=== PATIENT | female | born 1975 | race Caucasian/White ===

== ENCOUNTER 2023-03-07 13:19 | Emergency (ER) | payer MEDICARE, MEDICAID, SELFPAY ==
--- NOTE | ~2023-03-07 | CT_ITS ---
EXAMINATION: CT ABDOMEN AND PELVIS WITH CONTRAST CLINICAL INFORMATION: Postoperative fluid collection. COMPARISON: None available. TECHNIQUE: Multidetector volumetric images were obtained from the superior aspect of the liver through the pubic symphysis following administration 85 mL of Omnipaque 350 intravenous contrast. Sagittal and coronal reformatted images were obtained on the technologist's workstation. Oral contrast: No This CT examination was performed using dose optimization techniques as appropriate, variously including the following: *Automated exposure control *Adjustment of mA and/or kV according to patient size (this includes techniques or standardized protocols for targeted exams where dose is matched to indication/reason for exam; i.e. extremities or head) *Use of iterative reconstruction technique DLP: 602 mGy-cm FINDINGS: LUNG BASES: There is mild bibasilar linear scar/subsegmental atelectasis. LIVER, GALLBLADDER, AND BILIARY TREE: The liver is normal in size, shape, and attenuation. No focal hepatic lesion or biliary ductal dilatation is present. The gallbladder is unremarkable, with no evidence of radiopaque gallstones, gallbladder wall thickening or obvious pericholecystic inflammatory changes. PANCREAS: Unremarkable. SPLEEN: Unremarkable. ADRENAL GLANDS: Unremarkable. KIDNEYS AND URETERS: The kidneys are normal in size, shape, and attenuation. No hydronephrosis, hydroureter, or calculi seen. No perinephric stranding. BLADDER: Unremarkable. GASTROINTESTINAL TRACT: The small and large bowel are unremarkable. The appendix is unremarkable. ABDOMINAL WALL: There is anterior abdominal wall postoperative scarring. No fluid collection is noted. There is mild generalized anasarca. There is a tiny fat-containing umbilical hernia. LYMPH NODES: Normal. VASCULAR: Unremarkable. PELVIC VISCERA: In the rightward fundus (2:60), a 2.0 cm low-attenuation cystic, necrotic fibroid is seen. Bilateral tubal ligation clips are noted. The ovaries are unremarkable. OSSEOUS STRUCTURES: At T9-T10, there is mild degenerative disc disease, with vacuum disc phenomenon. No acute or aggressive osseous finding is seen. CT/CT abdomen pelvis w IV con IMPRESSION: 1. There is anterior abdominal wall postoperative scarring. No abnormal fluid collection is seen. No abscess or seroma is noted. There is mild generalized anasarca. 2. There is uterine fibroid disease. 3. There is mild degenerative disc disease at T9-T10. No acute or aggressive osseous finding is noted. Fleischner guidelines were followed.
[2023-03-07 14:11] VITALS: BP 135/84; PULSE 84; RESP 16; TEMP 36.6; O2SAT 99; BMI 32.3
--- NOTE | 2023-03-07 14:11 | ED_ITS ---
HPI - Skin/Abscess/Foreign Bdy General Chief complaint: Abdominal Pain Stated complaint: Surgery 01/15 incision opened up Time Seen by Provider: 03/07/23 16:12 Source: patient Mode of arrival: ambulatory Limitations: no limitations History of Present Illness HPI narrative: Patient post tummy tuck surgery in [place] on 01/15 was healing okay for last 2 weeks small wound opened up with slight pus discharge was seen at urgent care center this started on doxycycline which she finished 2 days ago comes as cc feel tight and still not heal completely no fever no chills Related Data Previous Rx's Medication Instructions Recorded cephalexin 500 mg capsule 500 mg PO QID 10 days #40 caps 03/07/23 mupirocin calcium 2 % topical cream 1 appl topical BID #15 grams 03/07/23 sulfamethoxazole 800 1 tab PO BID #20 tabs 03/07/23 mg-trimethoprim 160 mg tablet (Bactrim DS) fluconazole 150 mg tablet 150 mg PO DAILY 1 dose #1 tab 03/08/23 Allergies Allergy/AdvReac Type Severity Reaction Status Date / Time No Known Allergies Allergy Verified 03/07/23 14:11 Review of Systems 2 Review of Systems: Yes all other systems are reviewed and are negative [facility] Past Medical History Surgical History (Updated 03/07/23 @ 23:52 by Michael Reynoso MD) Status post abdominoplasty Social History Advance Directives: No Advance Directives Information Provided: Yes Physical Exam 2 Vital Signs: Vital Signs: Last Vital Signs Temp 97.8 F 03/07/23 23:36 Pulse 76 03/07/23 23:36 Resp 17 03/07/23 23:36 BP 95/56 L 03/07/23 23:36 Pulse Ox 100 03/07/23 23:36 O2 Del Method Room Air 03/07/23 23:36 BMI result Body Mass Index 32.3 Appearance: Alert. Oriented X3. No acute distress. Eyes: PERRLA, No Nystagmus ENT: Pharynx normal. Oral Mucosa moist Neck: Normal inspection. Neck supple. CVS: Normal heart rate and rhythm. Pulses normal. Respiratory: No respiratory distress. Equal air entry bilateral, no wheezing/rales/rhonchi Abdomen: Soft and nontender. Bowel sounds are present, no mass palpable, no CVA tenderness Skin: Skin warm and dry. Normal skin color. Normal skin turgor. Distance of the surgical wound no pus discharge Extremities: No lower extremity edema. No calf tenderness Neuro: Oriented X 3. Course Course Course Narrative: RME: 47yo F w/PMHx tummy tuck 01/15/23 in [place] c/o wound dehiscence x2 weeks which is worsening. Admits went to [facility] on 01/22 for CP/edema, w/u unremarkable, then self removed drain 2 weeks after surgery at home. Patient is a therapist at [employer], 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 Admits to pus drainage from area and chills. denies fever +wound dehiscence with pus drainage and induration. ttp Labs, UA ordered Full HPI, ROS and PE to be performed by primary ED provider. Medications Administered Discontinued Medications Generic Name Dose Route Start Last Admin Trade Name Freq PRN Reason Stop Dose Admin Piperacillin Sod/Tazobactam 50 mls @ 100 mls/hr 03/07/23 17:45 03/07/23 20:00 Sod 3.375 gm/ Sodium Chloride IV 03/07/23 18:14 Infused ONCE ONE Infusion Vancomycin HCl 2,000 mg in 500 mls @ 250 mls/hr 03/07/23 19:00 03/07/23 23:05 Vancomycin/Ns IV 03/07/23 20:59 Infused ONCE ONE Infusion Sodium Chloride 1,000 mls @ 999 mls/hr 03/07/23 18:38 03/07/23 22:47 Ns IV 03/07/23 19:38 Infused .Q1H1M ONE Infusion Iohexol 100 ml 03/07/23 20:06 03/07/23 20:06 Iohexol 350 Mg/Ml 100 Ml Infus..Btl IV 03/07/23 20:07 85 ml ONCE ONE Administration Morphine Sulfate 4 mg 03/07/23 17:45 03/07/23 18:26 Morphine Sulfate 4 Mg/Ml Cartridge IVPUSH 03/07/23 17:46 4 mg ONCE ONE Administration Protocol Morphine Sulfate 4 mg 03/07/23 19:31 03/07/23 21:02 Morphine Sulfate 4 Mg/Ml Cartridge IVPUSH 11/26/23 19:32 4 mg ONCE ONE Administration Protocol Ondansetron HCl 4 mg 03/07/23 19:31 03/07/23 20:19 Ondansetron Hcl 4 Mg/2 Ml Vial IVPUSH 03/07/23 19:32 4 mg ONCE ONE Administration Medical Decision Making Medical Decision Making [facility] Narrative: Patient with postop wound dehiscence with local secondary healing patient given IV antibiotic in the ER CT scan negative for any fluid collection under no abscess patient advised to follow with Wound Clinic and surgery discharged on Bactrim and Keflex Admission/Observation Consideration of admission/observation: Escalation of care including admission/observation considered Lab Data [facility] Lab Attestation statement: I reviewed the patient's lab results. 03/07/23 14:30 03/07/23 14:30 Labs: Lab Results 03/07/23 03/07/23 03/07/23 Range/Units 14:30 18:17 18:33 WBC 11.4 H (4.8-10.8) X10*3/uL RBC 4.59 (4.20-5.50) X10*6/uL Hgb 12.1 (12.0-16.0) g/dl Hct 39.1 (37.0-47.0) % MCV 85.2 (80.0-98.0) fL MCH 26.4 L (27.0-33.0) pg MCHC 30.9 L (31.0-35.0) g/dl RDW 13.9 (11.0-16.0) % Plt Count 390 (160-400) X10*3/uL MPV 8.4 L (9.4-12.3) fL Immature Gran % (Auto) 0.3 (0.0-0.4) % Neut % (Auto) 62.3 (45-73) % Lymph % (Auto) 29.7 (20-40) % [place] % (Auto) 5.9 (2-11) % Eos % (Auto) 1.3 (0-4) % Baso % (Auto) 0.5 (0-2) % Lymph # (Auto) 3.4 (1.2-4.9) X10*3/uL [place] # (Auto) 0.7 (0.1-1.2) X10*3/uL Eos # (Auto) 0.2 (0.0-0.4) X10*3/uL Baso # (Auto) 0.1 (0.0-0.2) X10*3/uL Abs Immat Gran (auto) 0.04 H (0.00-0.03) X10*3/uL Absolute Neuts (auto) 7.1 (2.0-8.3) x10*3/uL Absolute Nucleated RBC 0.000 (0.0-0.012) X10*3/uL Nucleated RBC % (auto) 0.0 (0.0-0.2) /100WBC PT 11.9 (11.1-13.3) SEC INR 1.0 (0.9-1.1) Sodium 141 (135-145) mmol/L Potassium 3.9 (3.3-5.1) mmol/L Chloride 103 (96-108) mmol/L Carbon Dioxide 29 (22-29) mmol/L Anion Gap 13 (12-20) BUN 12 (9-16) mg/dL Creatinine 0.72 (0.5-1.4) mg/dL Estim Creat Clear Calc 92.6 Estimated GFR > 60 Random Glucose 90 (60-115) mg/dL Lactic Acid 2.3 H* (0.5-2.0) mmol/L Lactic Acid F/U @ 2Hr (0.5-2.0) mmol/L Calcium 9.6 (8.4-10.2) mg/dL Magnesium 2.0 (1.6-2.6) mg/dL Total Bilirubin 0.2 (0.0-1.0) mg/dL Direct Bilirubin < 0.2 (0.0-0.5) mg/dL AST 16 (5-31) U/L ALT 16 (0-31) U/L Alkaline Phosphatase 100 (39-117) U/L Total Protein 7.8 (6.5-8.0) g/dL Albumin 4.1 (3.5-5.0) g/dL Lipase 14 (8-78) U/L Urine Color Yellow Urine Appearance Clear Urine pH 5.5 (5.0-9.0) Ur Specific [place] 1.025 (1.005-1.025) Urine Protein Negative (Neg-Trace) mg/dL Urine Glucose (UA) Negative (Negative) mg/dL Urine Ketones Negative (Negative) mg/dL Urine Blood Moderate (2+) H (Negative) Urine Nitrite Negative (Negative) Ur Leukocyte Esterase Negative (Negative) Urine RBC 6-10 H (0-2) /HPF Urine WBC 0-5 (0-5) /HPF Ur Squamous Epith Cells 0-2 (0-2) /HPF Urine Bacteria None Seen (None Seen) Hyaline Casts 0-2 (0-2) /LPF 03/07/23 Range/Units 20:46 WBC (4.8-10.8) X10*3/uL RBC (4.20-5.50) X10*6/uL Hgb (12.0-16.0) g/dl Hct (37.0-47.0) % MCV (80.0-98.0) fL MCH (27.0-33.0) pg MCHC (31.0-35.0) g/dl RDW (11.0-16.0) % Plt Count (160-400) X10*3/uL MPV (9.4-12.3) fL Immature Gran % (Auto) (0.0-0.4) % Neut % (Auto) (45-73) % Lymph % (Auto) (20-40) % [place] % (Auto) (2-11) % Eos % (Auto) (0-4) % Baso % (Auto) (0-2) % Lymph # (Auto) (1.2-4.9) X10*3/uL [place] # (Auto) (0.1-1.2) X10*3/uL Eos # (Auto) (0.0-0.4) X10*3/uL Baso # (Auto) (0.0-0.2) X10*3/uL Abs Immat Gran (auto) (0.00-0.03) X10*3/uL Absolute Neuts (auto) (2.0-8.3) x10*3/uL Absolute Nucleated RBC (0.0-0.012) X10*3/uL Nucleated RBC % (auto) (0.0-0.2) /100WBC PT (11.1-13.3) SEC INR (0.9-1.1) Sodium (135-145) mmol/L Potassium (3.3-5.1) mmol/L Chloride (96-108) mmol/L Carbon Dioxide (22-29) mmol/L Anion Gap (12-20) BUN (9-16) mg/dL Creatinine (0.5-1.4) mg/dL Estim Creat Clear Calc Estimated GFR Random Glucose (60-115) mg/dL Lactic Acid (0.5-2.0) mmol/L Lactic Acid F/U @ 2Hr 0.8 (0.5-2.0) mmol/L Calcium (8.4-10.2) mg/dL Magnesium (1.6-2.6) mg/dL Total Bilirubin (0.0-1.0) mg/dL Direct Bilirubin (0.0-0.5) mg/dL AST (5-31) U/L ALT (0-31) U/L Alkaline Phosphatase (39-117) U/L Total Protein (6.5-8.0) g/dL Albumin (3.5-5.0) g/dL Lipase (8-78) U/L Urine Color Urine Appearance Urine pH (5.0-9.0) Ur Specific [place] (1.005-1.025) Urine Protein (Neg-Trace) mg/dL Urine Glucose (UA) (Negative) mg/dL Urine Ketones (Negative) mg/dL Urine Blood (Negative) Urine Nitrite (Negative) Ur Leukocyte Esterase (Negative) Urine RBC (0-2) /HPF Urine WBC (0-5) /HPF Ur Squamous Epith Cells (0-2) /HPF Urine Bacteria (None Seen) Hyaline Casts (0-2) /LPF Discharge Plan Discharge Clinical Impression: Infected surgical wound Patient Disposition: Home, Self-Care Instructions: Surgical Site Infections (ED) Additional Instructions: Local care as advised use Bactroban ointment twice daily Take antibiotic as prescribed and follow-up with surgeon for wound care Prescriptions: New cephalexin 500 mg capsule 500 mg PO QID 10 Days Qty: 40 0RF sulfamethoxazole-trimethoprim [Bactrim DS] 800-160 mg tablet 1 tab PO BID Qty: 20 0RF mupirocin calcium 2 % cream 1 appl topical BID Qty: 15 0RF fluconazole 150 mg tablet 150 mg PO DAILY Qty: 1 0RF Rx Instructions: administer on day 1 of therapy Referrals: Davie Keenan MD [Physician] - 3 days Stand Alone Forms: Work/School Release Interventions: ED Discharge Assessment Last Done: 03/08/23 00:12 Discharge Date/Time: 03/08/23 00:14
[2023-03-07 14:34] LABS: MANUAL DIFF FLAG NO
[2023-03-07 14:37] LABS: Basophils Absolute Auto 0.1 X10*3/uL (0.0-0.2); Basophils Percent Auto 0.5 % (0-2); Eosinophils Absolute Auto 0.2 X10*3/uL (0.0-0.4); Eosinophils Percent Auto 1.3 % (0-4); Hematocrit 39.1 % (37.0-47.0); Hemoglobin 12.1 g/dl (12.0-16.0); Imm Gran Abs Auto 0.04 X10*3/uL (0.00-0.03); Imm Gran Pct Auto 0.3 % (0.0-0.4); Lymphocytes Absolute Auto 3.4 X10*3/uL (1.2-4.9); Lymphocytes Percent Auto 29.7 % (20-40); Mean Corpuscular HGB Conc 30.9 g/dl (31.0-35.0); Mean Corpuscular Hemoglobin 26.4 pg (27.0-33.0); Mean Corpuscular Volume 85.2 fL (80.0-98.0); Mean Platelet Volume 8.4 fL (9.4-12.3); Monocytes Absolute Auto 0.7 X10*3/uL (0.1-1.2); Monocytes Percent Auto 5.9 % (2-11); Neutrophils Absolute Auto 7.1 x10*3/uL (2.0-8.3); Neutrophils Percent Auto 62.3 % (45-73); Platelet Count 390 X10*3/uL (160-400); Red Blood Count 4.59 X10*6/uL (4.20-5.50); Red Cell Distribution Width 13.9 % (11.0-16.0); White Blood Count 11.4 X10*3/uL (4.8-10.8)
[2023-03-07 14:43] LABS: Prothrombin Time 11.9 SEC (11.1-13.3)
[2023-03-07 15:09] LABS: Alanine Aminotransferase 16 U/L (0-31); Albumin Level 4.1 g/dL (3.5-5.0); Alkaline Phosphatase 100 U/L (39-117); Anion Gap 13 (12-20); Aspartate Amino Transferase 16 U/L (5-31); Bilirubin Direct < 0.2 mg/dL (0.0-0.5); Bilirubin Total 0.2 mg/dL (0.0-1.0); Blood Urea Nitrogen 12 mg/dL (9-16); Calcium 9.6 mg/dL (8.4-10.2); Carbon Dioxide 29 mmol/L (22-29); Chloride 103 mmol/L (96-108); Creatinine Clr Calc Pharmacy 92.6; Estimated Glomerular Filt Rate > 60; Glucose Random 90 mg/dL (60-115); Lipase 14 U/L (8-78); Potassium 3.9 mmol/L (3.3-5.1); Sodium 141 mmol/L (135-145); Total Protein 7.8 g/dL (6.5-8.0)
[2023-03-07 16:07] VITALS: BP 114/68; PULSE 81; RESP 18; TEMP 36.7; O2SAT 99
[2023-03-07] MEDS: Morphine Sulfate 4 MG/ML CARTRIDGE IVPUSH ×2 (18:26→21:02)
[2023-03-07 18:36] LABS: Lactic Acid 2.3 mmol/L (0.5-2.0)
--- NOTE | 2023-03-07 18:40 | PC.NURSE ---
pt a&o x4, pleasant, calm, and cooperative. pt reporting 6/10 abdominal pain due to dehiscence of tummy tuck incision scar. 20G IV placed to RAC, labs drawn and sent. pt medicated per jun for pain. visitor at bedside. pt current in CT scan.
[2023-03-07 18:41] LABS: Appearance Urine Clear; Color Urine Yellow; Glucose Urine UA Negative (Negative); Leukocyte Esterase Urine Negative (Negative); Nitrite Urine Negative (Negative); PH 5.5 (5.0-9.0); Specific Gravity - Urine 1.025 (1.005-1.025); UMIC TRIGGER UACC YES; Urine Blood Moderate (2+) (Negative); Urine Ketones Negative (Negative); Urine Protein Negative (Neg-Trace)
[2023-03-07 18:47] LABS: Bacteria Urine None Seen (None Seen); Hyaline Casts Urine 0-2 /LPF (0-2); Squamous Epithelial Cell Urine 0-2 /HPF (0-2); WBC Urine 0-5 /HPF (0-5)
--- NOTE | 2023-03-07 18:52 | PC.NURSE ---
pt in CT scan. appears as if IV has infiltrated. pt to be brought back to room to place another IV.
[2023-03-07] MEDS: Piperacillin Sodium/Tazobactam 3.375 GM in 0.9 % Sodium Chloride 50 ML IV (19:24)
--- NOTE | 2023-03-07 19:31 | PC.NURSE ---
This RN took over assignment at 1900. Pt ca&ox4, no signs of distress. Provider place IV in left arm. Family remains at bedside. IV abx started. Plan of care ongoing.
[2023-03-07] MEDS: iohexoL 350 MG/ML 100 ML INFUS..BTL IV (20:06)
[2023-03-07] MEDS: ondansetron HCL 4 MG/2 ML VIAL IVPUSH (20:19)
[2023-03-07 20:20] LABS: Reflex Lactate? Lactic Acid Added
--- NOTE | 2023-03-07 20:24 | PC.NURSE ---
Pt requested to eat. This RN confirmed with provider Carmelo pt is able to eat. Plan of care ongoing.
[2023-03-07 20:40] VITALS: BP 125/79; PULSE 75; RESP 18; TEMP 36.6; O2SAT 98
--- NOTE | 2023-03-07 20:42 | MHC.EDTECH ---
This tech assumed care of patient at 1900.hourly rounds and vitals completed and call huynh within reach
--- NOTE | 2023-03-07 20:51 | MHC.EDTECH ---
Repeat Lactic drawn and sent to lab.
[2023-03-07] MEDS: vancomycin/NS 2,000 MG/500 ML PLAST..BAG 250 MG IV (21:03)
[2023-03-07] MEDS: 0.9 % Sodium Chloride 1,000 ML 999 ML IV (21:03)
[2023-03-07 21:06] LABS: ~Lactic Acid-LAB USE ONLY 0.8 mmol/L (0.5-2.0)
--- NOTE | 2023-03-07 21:28 | PC.NURSE ---
Pt medicated per jun. Pt ca&ox4, no signs of distress. Pt sitting in bed comfortably watching tv. Pts family at bedside. Plan of care ongoing.
--- NOTE | 2023-03-07 21:31 | PC.NURSE ---
1st bag of vanco was leaking. cryptologic technician Juliet talley. Pulled a 2nd bag of vanco and administered per jun. Pt medicated per jun. Plan of care ongoing.
[2023-03-07 22:53] VITALS: BP 104/68; PULSE 80; RESP 18; TEMP 36.5; O2SAT 99
[2023-03-07 23:36] VITALS: BP 95/56; PULSE 76; RESP 17; TEMP 36.6; O2SAT 100
== END 2023-03-08 00:14 | disposition home or self-care (01) ==
PROVIDERS: Physician Assistant; Emergency Provider Internal Medicine
DX: L08.9 Local infection of the skin and subcutaneous tissue, unspecified (principal); R10.2 Pelvic and perineal pain; Z48.00 Encounter for change or removal of nonsurgical wound dressing; Z79.899 Other long term (current) drug therapy
CPT/HCPCS: 36415; 74177; 80048; 80076; 81001; 83605; 83690; 83735; 85025; 85610; 87040; 96361; 96365; 96375; 99285; J2270; J2405; J2543; J3370; Q9967

== ENCOUNTER 2023-03-10 13:31 | Outpatient (AMB) | payer MEDICARE, MEDICAID, SELFPAY ==
--- NOTE | 2023-03-10 13:37 | MHC.OFFVIS ---
Intake Vital Signs 03/10/23 13:43 Height 5 ft 2 in Weight 174 lb BMI 31.8 BP 135/66 Blood Pressure Location Rt brachial Position Sitting Pulse 77 Intake Visit Reasons: Open wound s/p tummy tuck Intake Note: This patient presents for [facility] [place] [facility] emergency department follow-up assessment for open wound status post tummy tuck. Patient c/o; reports draining, reports open wound. Mate Fishing Vessel Required: No Accompanied by: Other Relationship Allergies No Known Allergies Allergy (Verified 03/10/23 13:44) Medication List - Last Reconciled 03/10/23 by Davie Keenan MD cephalexin 500 mg PO QID 10 days fluconazole 150 mg PO DAILY 1 dose mupirocin calcium 2% 1 appl topical BID sulfamethoxazole-trimethoprim 800-160 mg (Bactrim DS) 1 tab PO BID HPI Open wound s/p tummy tuck HPI Details 47-year-old female here for an open wound. She had undergone abdominoplasty in [place] last 01/15/2023. She says she flew back to [place] after 1 week. She had a drain in place and she had to remove this drain 2 weeks postop herself. She states that she continue of some swelling of the area around the incision along with some drainage. She had been wearing a special garment on her abdominal wall for this. She says that about 6 days ago, she had noticed a wider opening on the incision on the left side. She therefore went to the emergency room. She was given antibiotics and was instructed to see me. She says she has some drainage on the open area. She denies any fever or chills. [facility] Medical History (Updated 03/10/23 @ 14:50 by Davie Keenan MD) Open wound anterior abdominal wall Surgical History Status post abdominoplasty Review of Systems Const Denies chills and Denies fever(s) Card Denies chest pain, Denies dyspnea and Denies dyspnea on exertion Resp Denies cough, Denies dyspnea and Denies dyspnea on exertion GI Denies hematochezia and Denies change in bowel habits Denies hematuria Musc Denies back pain and Denies limited range of motion Neuro Denies focal weakness and Denies convulsions Psych Denies depression and Denies mood swings Physical Exam Vital Signs: Last Vital Signs Pulse 77 03/10/23 13:43 BP 135/66 03/10/23 13:43 BMI result Body Mass Index 31.8 Const General: comfortable and no acute distress Orientation/consciousness: patient oriented x3 Neck Neck: Yes no lymphadenopathy Resp Auscultation: clear to auscultation bilaterally Cardio Rhythm: regular rhythm GI Other: Skin separation noted on the lateral aspect of the abdominal plasty wound, about 1.5 cm wide, clean, granulating well, no cellulitis, no active drainage Palpation (GI): Soft to palpation, nontender and no guarding Neuro General: patient oriented x3 Assessment & Plan Assessment & Plan (1) Open wound anterior abdominal wall: Code(s): S31.109A - Unspecified open wound of abdominal wall, unspecified quadrant without penetration into peritoneal cavity, initial encounter Plan: She had skin separation of her abdominoplasty site with a resultant open wound on the area. There is note of good granulation. There is no cellulitis or pus I changed her dressings and instructed her on good wound care. I instructed her to complete her course of antibiotics as prescribed by the emergency room. I will see her again for recheck in about 2-3 weeks. She understands the plan well and is comfortable with this. Coding Level of Care Code New Pt Level 3 (45808) Diagnoses Open wound anterior abdominal wall S31.109A
[2023-03-10 13:43] VITALS: BP 135/66; PULSE 77; BMI 31.8
== END 2023-03-10 14:48 | disposition home or self-care (01) ==
PROVIDERS: Visit Provider Surgery
DX: S31.109A Unspecified open wound of abdominal wall, unspecified quadrant without penetration into peritoneal cavity, initial encounter (principal)
CPT/HCPCS: 99203

== ENCOUNTER → 2023-03-10 13:31 | Outpatient (BNVA) | payer MEDICARE, MEDICAID, SELFPAY | PROVIDERS: Visit Provider Surgery | DX: T81.31XA Disruption of external operation (surgical) wound, not elsewhere classified, initial encounter (principal); Z79.2 Long term (current) use of antibiotics | CPT/HCPCS: 99202 ==